=== PATIENT | female | born 1950 | race African-American/Black ===

== ENCOUNTER 2024-03-05 11:41 | Observation (INO) | payer OTHER ==
[2024-03-05 12:07] VITALS: BMI 28.8
[2024-03-05 12:51] LABS: BASO % 0.4 % (0-2.0); EOS % 4.4 % (0-4.5); HEMATOCRIT 36.6 % (32.4-45.2); HEMOGLOBIN 11.9 GM/dL (10.7-15.3); LYMPH % 13.2 % (8-40); MCH 28.4 pg (25.7-33.7); MCHC 32.4 g/dl (32.0-36.0); MEAN CELL VOLUME 87.7 fl (80-96); MEAN PLT VOLUME 8.6 fl (7.5-11.1); MONO % 8.7 % (3.8-10.2); NEUT % 73.3 % (42.8-82.8); PLATELET COUNT 195 10^3/uL (134-434); RBC 4.17 M/mm3 (3.60-5.2); RDW 14.5 % (11.6-15.6); WHITE BLOOD COUNT 6.6 K/mm3 (4.0-10.0)
[2024-03-05 12:57] LABS: INR 1.02 (0.83-1.09); PROTHROMBIN TIME (PATIENT) 11.5 SEC (9.7-13.0)
[2024-03-05 13:00] LABS: ACTIVATED PTT 33.4 SECONDS (25.2-36.5)
[2024-03-05 13:10] LABS: POTASSIUM 3.9 mmol/L (3.5-5.1)
[2024-03-05 13:12] LABS: ALBUMIN 3.7 g/dl (3.4-5.0); BLOOD UREA NITROGEN 13.4 mg/dL (7-18); CALCIUM 9.9 mg/dL (8.5-10.1); MAGNESIUM 2.5 mg/dL (1.8-2.4)
[2024-03-05 13:15] LABS: CREATININE 0.8 mg/dL (0.55-1.3); PHOSPHOROUS 3.1 mg/dL (2.5-4.9)
[2024-03-05 13:17] LABS: BILIRUBIN,TOTAL 0.4 mg/dL (0.2-1); TOT PROT 7.9 g/dl (6.4-8.2)
[2024-03-05 13:20] LABS: EPI CELLS 28 /uL (0-25.1); HYALINE CASTS 1 /uL (0-3.1); URINE APPEARANCE Error; URINE BACTERIA 818 /uL (0-1359); URINE BILIRUBIN NEGATIVE (NEGATIVE); URINE COLOR YELLOW; URINE GLUCOSE (UA) NEGATIVE (NEGATIVE); URINE KETONE NEGATIVE (NEGATIVE); URINE LEUK ESTERASE NEGATIVE (NEGATIVE); URINE NITRITE NEGATIVE (NEGATIVE); URINE PROTEIN NEGATIVE (NEGATIVE); URINE RBC 40 /uL (0-23.9); URINE UROBILINOGEN 0.2 mg/dL (0.2-1.0); URINE WBC 5 /uL (0-25.8)
[2024-03-05] MEDS ORDERED: DOCUSATE SODIUM 100 MG CAPSULE (FP) PO PRN (16:37)
[2024-03-05] MEDS ORDERED: ACETAMINOPHEN 325 MG TABLET (FP) ONE (19:17)
[2024-03-05] MEDS: ACETAMINOPHEN 325 MG TABLET (FP) PO PRN (19:21)
[2024-03-05] MEDS: ATORVASTATIN CA 10 MG TABLET (FP) PO SCH (21:37)
[2024-03-05] MEDS: GABAPENTIN 300 MG CAPSULE PO SCH (21:37)
[2024-03-05] MEDS ORDERED: LOSARTAN 50MG/HCTZ 12.5MG 1 TAB PO SCH (22:00)
[2024-03-05] MEDS: LOSARTAN 50MG/HCTZ 12.5MG 1 TAB PO SCH (22:27)
[2024-03-06] MEDS: ENOXAPARIN NA (PORCINE) 40 MG/0.4 ML DISP.SYRIN SQ SCH (09:40)
[2024-03-06] MEDS: ASPIRIN 81 MG CHEWABLE TABLETS PO SCH (09:41)
[2024-03-06] MEDS: ATENOLOL 25 MG TABLET (FP) PO SCH ×2 (09:41→21:23)
[2024-03-06] MEDS ORDERED: LOSARTAN 50MG/HCTZ 12.5MG 1 TAB PO SCH (10:00)
[2024-03-06] MEDS: EMTRICITAB/RILPIVIRI/TENOF ALA (ODEFSEY) TABLET PO SCH (11:07)
[2024-03-06] MEDS: LIDOCAINE 4% PATCH TP SCH (11:08)
[2024-03-06] MEDS: levETIRAcetam 500 MG TABLET (FP) PO SCH (21:23)
[2024-03-06] MEDS: IBUPROFEN 400 MG TABLET (FP) PO PRN (21:23)
[2024-03-06] MEDS: LIDOCAINE PATCH REMOVAL MC SCH (21:25)
[2024-03-07 08:27] LABS: BASO % 0.5 % (0-2.0); EOS % 7.3 % (0-4.5); HEMATOCRIT 33.8 % (32.4-45.2); HEMOGLOBIN 11.4 GM/dL (10.7-15.3); LYMPH % 18.4 % (8-40); MCH 28.9 pg (25.7-33.7); MCHC 33.8 g/dl (32.0-36.0); MEAN CELL VOLUME 85.6 fl (80-96); MEAN PLT VOLUME 8.6 fl (7.5-11.1); MONO % 12.1 % (3.8-10.2); NEUT % 61.7 % (42.8-82.8); PLATELET COUNT 188 10^3/uL (134-434); RBC 3.95 M/mm3 (3.60-5.2); RDW 14.1 % (11.6-15.6); WHITE BLOOD COUNT 6.2 K/mm3 (4.0-10.0)
[2024-03-07 08:35] LABS: POTASSIUM 4.2 mmol/L (3.5-5.1)
[2024-03-07 08:37] LABS: BLOOD UREA NITROGEN 22.1 mg/dL (7-18)
[2024-03-07 08:39] LABS: CALCIUM 9.4 mg/dL (8.5-10.1)
[2024-03-07 08:40] LABS: ALBUMIN 3.1 g/dl (3.4-5.0)
[2024-03-07 08:41] LABS: CREATININE 0.9 mg/dL (0.55-1.3); MAGNESIUM 2.3 mg/dL (1.8-2.4)
[2024-03-07 08:43] LABS: BILIRUBIN,TOTAL 0.4 mg/dL (0.2-1)
[2024-03-07] MEDS: ASPIRIN COATED 81 MG TABLET.EC PO SCH (09:57)
[2024-03-07 15:06] VITALS: BP 114/41; PULSE 65; RESP 19; TEMP 98.9
== END 2024-03-07 17:29 | disposition home or self-care (01) ==
LOC: JER 11:41 → JERBED 13:05 → J4W 20:30
PROVIDERS: ADMIT Internal Medicine; ATTEND Internal Medicine
CPT/HCPCS: 0241U-QW; 36415; 70450-TC; 71046-TC-FY; 72125-TC; 72170-TC-FY; 80053; 81003; 82962; 83735; 84100; 84443; 84484; 85025; 85610; 85730; 86850; 86900; 86901; 87086; 87651; 93005; 93010; 93306-TC; 93880-TC; 99285-25; G0378